=== PATIENT | male | born 1985 | race Two or more races ===

== ENCOUNTER 2020-11-08 21:01 | Emergency (ER) | payer MEDICAID ==
[~2020-11-08] VITALS: Ht 170.2 cm; Wt 106.1 kg
[~2020-11-08 21:01] MED LIST: IBUP-1221 PO
[2020-11-08 23:14] LABS: BASOPHILS % (AUTO) 1 % (0-1); EOSINOPHILS % (AUTO) 2 % (1-7); LYMPHOCYTES % (AUTO) 21 % (22-44); MEAN CORPUSCULAR HEMOGLOBIN 28.1 pg (27.5-34.5); MEAN CORPUSCULAR HGB CONC 34.1 g/dL (33.2-36.2); MEAN PLATELET VOLUME 9.7 fL (7.4-10.4); MONOCYTES % (AUTO) 7 % (2-9); NEUTROPHILS % (AUTO) 69 % (42-75); PLATELET COUNT 360 x10^3/uL (130-400); RED BLOOD COUNT 5.88 x10^6/uL (4.38-5.82); RED CELL DISTRIBUTION WIDTH 13.6 % (9.4-14.8)
[2020-11-08 23:21] LABS: MD NO
[2020-11-09 00:24] LABS: ALBUMIN 3.7 g/dL (3.4-5.0); ANION GAP 5 mmol/L (5-15); CALCIUM 9.2 mg/dL (8.5-10.1); CHLORIDE 107 mmol/L (98-107); CREATININE 0.97 mg/dL (0.7-1.3)
[2020-11-09 00:50] LABS: MICROSCOPIC AUTO
[2020-11-09 05:56] VITALS: BP 157/94
== END 2020-11-09 06:48 | disposition home or self-care (01) ==
LOC: ED 11-09 06:00
DX: K57.32 Diverticulitis of large intestine without perforation or abscess without bleeding (principal); N13.2 Hydronephrosis with renal and ureteral calculous obstruction; R31.9 Hematuria, unspecified
CPT/HCPCS: 36415; 74176; 80048; 81001; 82040; 85025; 99284